=== PATIENT | female | born 1985 | race Hispanic/Latino ===

== ENCOUNTER 2020-09-26 17:12 | Outpatient (CLI) | payer OTHER ==
[2020-09-26 17:51] VITALS: BP 107/57
== END 2020-09-26 18:25 | disposition home or self-care (01) ==
LOC: TRG 17:12 → APU 17:19 → TRG 18:25
PROVIDERS: ATTEND Obstetrics & Gynecology
DX: O26.893 Other specified pregnancy related conditions, third trimester (principal); R10.2 Pelvic and perineal pain; Z3A.35 35 weeks gestation of pregnancy
CPT/HCPCS: 59025

== ENCOUNTER 2020-10-09 00:14 | Observation (INO) | payer OTHER ==
[2020-10-09] MEDS ORDERED: LACTATED RINGERS 1,000 ML IV ONE (00:55)
[2020-10-09] MEDS ORDERED: LACTATED RINGERS 1,000 ML IV SCH (02:15)
[2020-10-09 02:38] LABS: Hemoglobin 12.1 gm/dl (10.1-14.3); Mean Corpuscular HGB Conc 35 % (30-34); Mean Corpuscular Volume 91 fl (79-97); Platelet Count 263 K/mm3 (140-440); Red Blood Count 3.85 M/mm3 (3.65-5.03); Red Cell Distribution Width 12.8 % (13.2-15.2)
--- NOTE | 2020-10-09 02:39 | Ultrasound Report ---
US OB limited INDICATION: PLACENTA LOCATION AND INTEGRITY. TECHNIQUE: Transabdominal. COMPARISON: None available. FINDINGS/IMPRESSION: There is a single intrauterine . Heart Rate: 157 beats per minute. Position: cephalic. Placenta: Posterior low-lying placenta. Grade 2. No evidence of abruption. Signer Name: Bryon Glover MD Signed: 10/09/2020 2:35 AM Workstation Name: [id number]
[2020-10-09] MEDS ORDERED: TERBUTALINE 1 MG/1 ML INJ SUB-Q ONE (02:42)
--- NOTE | 2020-10-09 05:30 | History and Physical Report ---
History of Present Illness Date of examination: 10/09/20 Date of admission: 10/09/20 02:15 Chief complaint: painless vagina bleeding History of present illness: EDC Calculations LMP: 10/28/2020 Past History : 3 Term Births: 2 Premature Births: 0 Living Children: 2 Para: 2 Mult. Births: 0 Prev : 1 Prev. attempt? 0 Aborta: 0 Elect. Ab: 0 Spont. Ab: 0 Ectopics: 0 # 1 Delivery date: 07/24/2006 Weeks Gestation: 40 labor: no Delivery type: Anesthesia type: none Delivery location: [facility] Sex: Male # 2 Delivery date: 01/13/2016 Delivery type: Delivery location: [facility] Infant Sex: Female weight: 6#10 Comments: breech Risk Factors: Smoked Tobacco Use: Never smoker Smokeless Tobacco Use: Never Passive smoke exposure: no Drug use: no HIV high-risk behavior: no Caffeine use: <1 drinks per day Alcohol use: no Exercise: yes Times per week: 3 Type of Exercise: walking Seatbelt use: preg-teen counselor % Dietary Counseling: pn yes Past Medical History: Reviewed history from 09/21/2015 and no changes required: Negative Past Medical History Past Surgical History: Reviewed history from 02/24/2016 and no changes required: x 1 Social History: Reviewed history from 09/21/2015 and no changes required: Patient is single Smoking History: Patient has never smoked. No ETOH or drugs use Past Medical History Surgery (Non-door closer): x 1 Abnormal PAP: negative JOHAN Exposure: negative Infertility: negative Uterine Anomaly: negative Uterine Surgery (not C/S): negative Other Gynecologic Problems: negative Social Hx: Patient is single Smoking History: Patient has never smoked. No ETOH or drugs use Infection History Hx of STD: none HIV Risk Eval: no Hepatitis B Risk Eval: low risk Personal hx. of genital herpes: no Rash, Viral, or Febrile illness since last LMP? no Varicella/Chicken Pox Status: Previous Disease TB Risk: no Genetic History ADVANCED MATERNAL AGE Congenital Heart Defect: Mom: no Dad: no Eufemia Disease: Mom: no Dad: no Thalassemia Mom: no Dad: no Neural Tube Defect Mom: no Dad: no Down's Syndrome Mom: no Dad: no Kulwinder-Sachs Mom: no Dad: no Sickle Cell Disease/Trait Mom: no Dad: no Hemophilia Mom: no Dad: no Muscular Dystrophy Mom: no Dad: no Cystic Fibrosis Mom: no Dad: no Sudarshan Chorea Mom: no Dad: no Mental Retardation Mom: no Dad: no Fragile X Mom: no Dad: no Other Genetic/Chromosomal Disorder Mom: no Dad: no Child w/other defect Mom: no Dad: no Enviromental Exposures Enviromental Exposures Reviewed Xray Exposure: no Medication, drug, or alcohol use since LMP: no Chemical/Other Exposure: no Exposure to Cat Liter: no Hx of Parvovirus (Fifth Disease): no Occupational Exposure to Children: none Comments: unemployed Active Medications (reviewed today): PNV () Current Allergies (reviewed today): CODEINE SULFATE (CODEINE SULFATE TABS) (Critical) Past History Past Medical History: other (see HPI) Past Surgical History: other (see HPI) INDIVIDUAL PENSION CONSULTANT History: other (see HPI) Family/Genetic History: other (see HPI) - Obstetrical History Expected Date of Delivery: 10/28/20 Actual Gestation: 37 Week(s) 2 Day(s) : 3 Para: 2 Hx # Term Pregnancies: 2 Spontaneous Abortions: 0 Induced : 0 Number of Living Children: 2 Medications and Allergies Allergies Allergy/AdvReac Type Severity Reaction Status Date / Time codeine Allergy Intermediate Hives Verified 02/24/16 15:45 Home Medications Medication Instructions Recorded Confirmed Last Taken Type Famotidine [Acid-Pep] 20 mg PO DAILY 09/26/20 09/26/20 09/26/20 History Multivitamin Tablet 1 tab PO DAILY 09/26/20 09/26/20 09/26/20 History Active Meds: Active Medications Lactated Ringer's (Lactated Ringers) 1,000 mls @ 125 mls/hr IV DIRECT CATHY Multivitamins/Iron/Calcium ( [id number] Fumarate-Folic Acid Vit Tab) 1 each PO QDAY CATHY Review of Systems All systems: negative - Vital Signs Vital signs: Vital Signs Temp 98.2 F 10/09/20 00:34 Temp Pulse Resp BP Pulse Ox 97.9 F 89 14 117/64 98 10/09/20 03:04 10/09/20 05:22 10/09/20 03:04 10/09/20 03:04 10/09/20 05:22 - Physical Exam Cardiovascular: Regular rate Lungs: Positive: Normal air movement Abdomen: Positive: normal appearance, soft Genitourinary (Female): Positive: normal external genitalia, normal perenium Vulva: both: normal (scant bleeding - bright red) Uterus: Positive: normal size, normal contour Anus/Rectum: Positive: normal perianal skin Extremities: Positive: normal Deep Tendon Reflex Grade: Normal +2 - Obstetrical FHR: category 1 Uterine Contraction Monitor Mode: External Cervical Dilatation: 0.5 (per physician non invasive cardiologist) Uterine Contraction Pattern: Irregular Uterine Tone Measurement Phase: Contraction Uterine Contraction Intensity: Mild Results Result Diagrams: 10/09/20 01:25 Abnormal lab results 10/09/20 Range/Units 01:25 WBC 11.6 H (4.5-11.0) K/mm3 MCHC 35 H (30-34) % RDW 12.8 L (13.2-15.2) % All other labs normal. Assessment and Plan 34 y/o @ 37+2 noticed vaginal bleeding while at home watching TV. she denies feeling ctx and reports active FM. u/s with MFM 08/03 noted posterior placenta. u/s done while in triage noted possible low lying/previa. - Patient Problems (1) Previous section Current Visit: Yes Status: Acute (2) Vaginal bleeding Current Visit: Yes Status: Acute Plan to address problem: observe overnight for additional bleeding consider repeating u/s if bleeding persist monitor for labor (3) 37 weeks gestation of Current Visit: Yes Status: Acute
[2020-10-09] MEDS ORDERED: LIDOCAINE PF 100 MG/5 ML (CARDIAC SYRINGE) IV ONE (06:05)
--- NOTE | 2020-10-09 07:49 | Progress Note ---
Assessment and Plan A: 34 y.o. @ 37+ wks. Admitted for c/o vaginal bleeding. No vaginal bleeding noted this AM. P: Will obtain cervical length via u/s this AM. If cervical length normal will discharge home. Pt aware to keep pre op appointment if discharged home. Subjective - Subjective Date of service: 10/09/20 (No bleeding) Principal diagnosis: IUP @ 37+, c/o vaginal bleeding. Patient reports: other (No bleeding) Objective - Vital Signs Vital Signs: Vital Signs - 12hr 10/09/20 10/09/20 10/09/20 00:34 00:35 00:40 Temperature 98.2 F Pulse Rate 72 79 Respiratory Rate Blood Pressure 114/69 Blood Pressure [Left] O2 Sat by Pulse 98 98 Oximetry 10/09/20 10/09/20 10/09/20 00:45 00:50 00:55 Temperature Pulse Rate 85 90 80 Respiratory Rate Blood Pressure Blood Pressure [Left] O2 Sat by Pulse 98 98 97 Oximetry 10/09/20 10/09/20 10/09/20 01:02 01:07 01:12 Temperature Pulse Rate 85 89 82 Respiratory Rate Blood Pressure Blood Pressure [Left] O2 Sat by Pulse 98 98 98 Oximetry 10/09/20 10/09/20 10/09/20 01:17 01:22 01:27 Temperature Pulse Rate 74 77 85 Respiratory Rate Blood Pressure Blood Pressure [Left] O2 Sat by Pulse 97 98 99 Oximetry 10/09/20 10/09/20 10/09/20 01:32 01:37 01:42 Temperature Pulse Rate 78 71 66 Respiratory Rate Blood Pressure Blood Pressure [Left] O2 Sat by Pulse 98 98 99 Oximetry 10/09/20 10/09/20 10/09/20 01:47 01:52 01:57 Temperature Pulse Rate 78 70 85 Respiratory Rate Blood Pressure Blood Pressure [Left] O2 Sat by Pulse 98 98 98 Oximetry 10/09/20 10/09/20 10/09/20 02:02 02:07 02:12 Temperature Pulse Rate 79 79 68 Respiratory Rate Blood Pressure Blood Pressure [Left] O2 Sat by Pulse 98 97 98 Oximetry 10/09/20 10/09/20 10/09/20 02:17 02:22 02:27 Temperature Pulse Rate 74 69 77 Respiratory Rate Blood Pressure Blood Pressure [Left] O2 Sat by Pulse 98 98 99 Oximetry 10/09/20 10/09/20 10/09/20 03:02 03:03 03:04 Temperature 97.9 F Pulse Rate 119 H 100 H 114 H Respiratory 14 Rate Blood Pressure 117/64 Blood Pressure 117/64 [Left] O2 Sat by Pulse 99 98 Oximetry 10/09/20 10/09/20 10/09/20 03:07 03:12 03:17 Temperature Pulse Rate 110 H 100 H 106 H Respiratory Rate Blood Pressure Blood Pressure [Left] O2 Sat by Pulse 98 98 98 Oximetry 10/09/20 10/09/20 10/09/20 03:22 03:27 03:32 Temperature Pulse Rate 94 H 90 86 Respiratory Rate Blood Pressure Blood Pressure [Left] O2 Sat by Pulse 99 97 99 Oximetry 10/09/20 10/09/20 10/09/20 03:37 03:42 03:47 Temperature Pulse Rate 96 H 76 81 Respiratory Rate Blood Pressure Blood Pressure [Left] O2 Sat by Pulse 98 98 98 Oximetry 10/09/20 10/09/20 10/09/20 03:52 03:57 04:02 Temperature Pulse Rate 77 86 84 Respiratory Rate Blood Pressure Blood Pressure [Left] O2 Sat by Pulse 97 97 97 Oximetry 10/09/20 10/09/20 10/09/20 04:07 04:12 04:17 Temperature Pulse Rate 89 90 93 H Respiratory Rate Blood Pressure Blood Pressure [Left] O2 Sat by Pulse 97 97 97 Oximetry 10/09/20 10/09/20 10/09/20 04:22 04:27 04:32 Temperature Pulse Rate 94 H 92 H 88 Respiratory Rate Blood Pressure Blood Pressure [Left] O2 Sat by Pulse 97 96 97 Oximetry 10/09/20 10/09/20 10/09/20 04:37 04:42 04:47 Temperature Pulse Rate 95 H 81 88 Respiratory Rate Blood Pressure Blood Pressure [Left] O2 Sat by Pulse 98 98 97 Oximetry 10/09/20 10/09/20 10/09/20 04:52 04:57 05:02 Temperature Pulse Rate 86 86 84 Respiratory Rate Blood Pressure Blood Pressure [Left] O2 Sat by Pulse 98 97 98 Oximetry 10/09/20 10/09/20 10/09/20 05:07 05:12 05:17 Temperature Pulse Rate 98 H 85 80 Respiratory Rate Blood Pressure Blood Pressure [Left] O2 Sat by Pulse 97 97 98 Oximetry 10/09/20 10/09/20 10/09/20 05:22 05:27 05:32 Temperature Pulse Rate 89 75 95 H Respiratory Rate Blood Pressure Blood Pressure [Left] O2 Sat by Pulse 98 98 99 Oximetry 10/09/20 10/09/20 10/09/20 05:37 05:42 05:47 Temperature Pulse Rate 83 78 75 Respiratory Rate Blood Pressure Blood Pressure [Left] O2 Sat by Pulse 98 98 97 Oximetry 10/09/20 10/09/20 10/09/20 05:52 05:57 06:02 Temperature Pulse Rate 75 75 74 Respiratory Rate Blood Pressure Blood Pressure [Left] O2 Sat by Pulse 98 97 97 Oximetry 10/09/20 10/09/20 10/09/20 06:07 06:12 06:17 Temperature Pulse Rate 73 111 H 74 Respiratory Rate Blood Pressure Blood Pressure [Left] O2 Sat by Pulse 97 99 97 Oximetry 10/09/20 10/09/20 10/09/20 06:22 06:27 06:32 Temperature Pulse Rate 72 69 75 Respiratory Rate Blood Pressure Blood Pressure [Left] O2 Sat by Pulse 98 97 97 Oximetry 10/09/20 10/09/20 10/09/20 06:37 06:42 06:47 Temperature Pulse Rate 86 79 75 Respiratory Rate Blood Pressure Blood Pressure [Left] O2 Sat by Pulse 97 98 98 Oximetry 10/09/20 10/09/20 10/09/20 06:52 06:57 07:02 Temperature Pulse Rate 85 86 76 Respiratory Rate Blood Pressure Blood Pressure [Left] O2 Sat by Pulse 98 97 98 Oximetry 10/09/20 10/09/20 10/09/20 07:07 07:12 07:17 Temperature Pulse Rate 79 78 111 H Respiratory Rate Blood Pressure Blood Pressure [Left] O2 Sat by Pulse 99 97 98 Oximetry 10/09/20 10/09/20 10/09/20 07:22 07:27 07:32 Temperature Pulse Rate 70 71 105 H Respiratory Rate Blood Pressure Blood Pressure [Left] O2 Sat by Pulse 98 97 98 Oximetry 10/09/20 10/09/20 10/09/20 07:37 07:42 07:47 Temperature Pulse Rate 74 68 69 Respiratory Rate Blood Pressure Blood Pressure [Left] O2 Sat by Pulse 97 98 99 Oximetry - Exam Breasts: deferred Cardiovascular: Regular rate Lungs: Normal air movement Abdomen: Present: normal appearance, soft Uterus: Present: normal FHR: category 1 Uterine Contraction Monitor Mode: External Uterine Contraction Pattern: Absent Uterine Tone Measurement Phase: Resting Extremities: normal - Labs Labs: Abnormal Labs 10/09/20 01:25 WBC 11.6 H MCHC 35 H RDW 12.8 L Laboratory Results - last 24 hr 10/09/20 10/09/20 10/09/20 01:25 01:25 01:25 WBC 11.6 H RBC 3.85 Hgb 12.1 Hct 35.0 MCV 91 MCH 31 MCHC 35 H RDW 12.8 L Plt Count 263 Syphilis IgG Antibody Nonreactive Blood Type O POSITIVE Antibody Screen Negative
--- NOTE | 2020-10-09 09:06 | Ultrasound Report ---
ULTRASOUND OBSTETRIC LIMITED INDICATION / CLINICAL INFORMATION: Evaluate cervical length. TECHNIQUE: Transabdominal ultrasound imaging. COMPARISON: Earlier today at 0121 hours FINDINGS: HEART RATE (beats per minute): 112 AMNIOTIC FLUID INDEX (cm) = not measured PRESENTATION: Cephalic. ADDITIONAL FINDINGS: The cervix measures 2.7 cm in length. IMPRESSION: The cervix measures 2.7 cm in length. Signer Name: Nathan Donohue Jr, MD Signed: 10/09/2020 9:02 AM Workstation Name: [id number]
[2020-10-09] MEDS ORDERED: PRENATAL VIT27-FE FUMARATE-FOLIC ACID VIT TAB PO SCH (10:00)
--- NOTE | 2020-10-09 13:35 | Discharge Summary ---
Providers - Providers Date of Admission: 10/09/20 02:15 Date of discharge: 10/09/20 (No bleeding noted. ) Attending physician: CRISPIN BARNES Primary care physician: CRISPIN BARNES Hospitalization Reason for admission: observation Pertinent studies: Went to speak with patient and she was doing well. She has had no episodes of bleeding since last night. Examination: her cervix appears closed and no bleeding was seen. She denies abdominal tenderness. Her monitor strip is category 1 with an occasional contraction. We discussed when to call the photonics engineering technician provider with concerns. Pt to keep her scheduled pre operative appointment on 10/15. Pt verbalized understanding of all instructions given to her. Hospital course: S Pt doing well. No vaginal bleeding reported. Denies LOF, ctxs, and vaginal bleeding. Positive movement. O: VSS. Category 1 strip with an occasional contraction. No bleeding noted on pad and cervix appears closed. A: 34 y.o. @ 37+ wks, admitted for observation d/t vaginal bleeding. No more vaginal bleeding noted. In good condition for discharge home. P: Discharge home with instructions. Pt to keep scheduled pre op appointment on 10/15. Should pt have anymore vaginal bleeding, she will call photonics engineering technician provider and come to triage for evaluation. Condition at discharge: Good Disposition: DC-01 TO HOME OR SELFCARE Plan - Provider Discharge Summary Activity: routine, no sex for 6 weeks, no heavy lifting 4 weeks, no strenuous exercise Diet: routine Instructions: routine Additional instructions: [] Smoking cessation referral if applicable(refer to patient education folder for contact #) [] Refer to [facility]'s [facility] Booklet Call your doctor immediately for: * Fever > 100.5 * Heavy vaginal bleeding ( >1 pad per hour) * Severe persistent headache * Shortness of breath * Reddened, hot, painful area to leg or breast * Drainage or odor from incision. * Keep incision clean and dry at all times and follow doctor's instructions regarding bathing/showering Please keep your scheduled pre operative appointment on 10/15. Should you have any questions or concerns before that date, please do not hesitate to call the office at [phone]. If you have any leakage of fluid, vaginal bleeding like a period, decreased movement, or regular contractions every 5 minutes, please call the photonics engineering technician provider and go to [facility] Delivery to be evaluated. - Follow up plan Follow up: CRISPIN BARNES MD [Primary Care Provider] - 7 Days Forms: [facility] Discharge Summary
[2020-10-09 14:27] VITALS: BP 99/65
== END 2020-10-09 14:28 | disposition home or self-care (01) ==
LOC: TRG 00:14 → APU 00:22 → LD 02:15 → TRG 02:15
PROVIDERS: ADMIT Obstetrics & Gynecology; ATTEND Obstetrics & Gynecology
DX: O46.93 Antepartum hemorrhage, unspecified, third trimester (principal); Z20.822 Contact with and (suspected) exposure to COVID-19; Z3A.37 37 weeks gestation of pregnancy; Z98.891 History of uterine scar from previous surgery
CPT/HCPCS: 36415; 59020; 76815; 85027; 86592; 86850; 86900; 86901; 96360; 96372; G0378; J3105; J7120; U0003

== ENCOUNTER 2020-10-18 05:27 | Inpatient (IN) | payer OTHER ==
[2020-10-18 07:12] LABS: Bacteria,Urine 1+ /HPF (Negative); Bilirubin,Urine NEG (Negative); Blood,Urine NEG (Negative); Color,Urine Yellow (Yellow); Mucus,Urine FEW /HPF; Protein,Urine <15 mg/dL mg/dL (Negative); RBC,Urine < 1.0 /HPF (0.0-6.0); Urobilinogen,Urine < 2.0 mg/dL (<2.0)
[2020-10-18] MEDS ORDERED: BICITRA ORAL LIQD 30ML PO ONE (07:48)
[2020-10-18] MEDS ORDERED: METOCLOPRAMIDE 10 MG/2 ML INJ IV ONE (07:48)
[2020-10-18] MEDS ORDERED: FAMOTIDINE 20 MG/2 ML INJ IV ONE (07:48)
[2020-10-18] MEDS ORDERED: OXYTOCIN DRIP 30 UNITS/500 ML BAG IV SCH ×2 (08:00→13:15)
[2020-10-18] MEDS ORDERED: ceFAZolin/Water 2 GM/20 ML 2 GM/20 ML SYRINGE IV NR (08:00)
[2020-10-18] MEDS: LACTATED RINGERS 1,000 ML IV SCH ×2 (08:10→08:46)
[2020-10-18 08:27] LABS: Hematocrit 33.7 % (30.3-42.9); Hemoglobin 12.1 gm/dl (10.1-14.3); Mean Corpuscular HGB Conc 36 % (30-34); Mean Corpuscular Volume 89 fl (79-97); Platelet Count 262 K/mm3 (140-440); Red Blood Count 3.78 M/mm3 (3.65-5.03); Red Cell Distribution Width 12.9 % (13.2-15.2)
--- NOTE | 2020-10-18 08:31 | Anesthesia Day of Surgery ---
Anesthesia Day of Surgery - Day of Surgery Patient Examined: Yes Patient H&P Reviewed: Yes Patient is NPO: Yes Beta Blockers: No Cardiac Clearance: No Pulmonary Clearance: No Romie's Test: N/A
[2020-10-18] MEDS ORDERED: NALOXONE 0.4 MG/1 ML INJ IV PRN ×2 (08:33→13:15)
[2020-10-18] MEDS ORDERED: ONDANSETRON 4 MG/2 ML INJ IV PRN (08:33)
[2020-10-18] MEDS ORDERED: HYDROmorphone 1 MG/1 ML INJ IV PRN (08:33)
--- NOTE | 2020-10-18 08:33 | Anesthesia Consultation ---
Anesthesia Consult and Med Hx Date of service: 10/18/20 - Airway Anesthetic Teeth Evaluation: Good ROM Head & Neck: Adequate Mental/Hyoid Distance: Adequate Mallampati Class: Class II Intubation Access Assessment: Probably Good - Pulmonary Exam CTA: Yes - Cardiac Exam Cardiac Exam: RRR - Pre-Operative Health Status ASA Pre-Surgery Classification: ASA2 Proposed Anesthetic Plan: Spinal - Pulmonary Hx Smoking: No Hx Asthma: No Hx Respiratory Symptoms: No SOB: No COPD: No Home Oxygen Therapy: No Hx Pneumonia: No Hx Sleep Apnea: No - Cardiovascular System Hx Hypertension: No Hx Coronary Artery Disease: No Hx Heart Attack/AMI: No Hx Angina: No Hx Percutaneous Transluminal Coronary Angioplasty (PTCA): No Hx Cardia Arrhythmia: No Hx Pacemaker: No Hx Internal Defibrillator: No Hx Valvular Heart Disease: No Hx Heart Murmur: Yes (as a child, "don't have it anymore") Hx Peripheral Vascular Disease: No - Central Nervous System Hx Neuromuscular Disorder: No Hx Seizures: No Hx Psychiatric Problems: No - Gastrointestinal Hx Ulcer: No Hx Gastroesophageal Reflux Disease: No - Endocrine Hx Renal Disease: No Hx End Stage Renal Disease: No Hx Cirrhosis: No Hx Liver Disease: No Hx Insulin Dependent Diabetes: No Hx Non-Insulin Dependent Diabetes: No Hx Thyroid Disease: No Hx Hypothyroidism: No Hx Hyperthyroidism: No - Hematic Hx Anemia: No Hx Sickle Cell Disease: No - Other Systems Hx Alcohol Use: No Hx Substance Use: No Hx Cancer: No Hx Obesity: No
[2020-10-18] MEDS ORDERED: ceFAZolin/STERILE WATER 2 GM/20 ML SYRINGE IV ONE (09:42)
[2020-10-18] MEDS ORDERED: ONDANSETRON 4 MG/2 ML INJ ONE ×2 (09:56)
--- NOTE | 2020-10-18 09:59 | History and Physical Report ---
History of Present Illness Date of examination: 10/18/20 Date of admission: 10/18/20 07:44 Chief complaint: IUP@ 38 4/7 previous C/S who desires repeat c/s and presented for pelvic pain. She was noted to have persistent contractions. Although she is not dilated, will proceed with c/s d/t concern for persistent contraction and uterine rupture. Diagnosis and concerns discussed with patient she desires to proceed with c/s. She declines sterilization at this time. History of present illness: EDC Confirmation: 10/28/2020 Gestational Age: 20 6/7 weeks Past History : 3 Term Births: 2 Premature Births: 0 Living Children: 2 Para: 2 Mult. Births: 0 Prev : 1 Prev. attempt? 0 Aborta: 0 Elect. Ab: 0 Spont. Ab: 0 Ectopics: 0 # 1 Delivery date: 07/24/2006 Weeks Gestation: 40 labor: no Delivery type: Anesthesia type: none Delivery location: [facility] Sex: Male # 2 Delivery date: 01/13/2016 Delivery type: Delivery location: [facility] Infant Sex: Female weight: 6#10 Comments: breech Risk Factors: Smoked Tobacco Use: Never smoker Smokeless Tobacco Use: Never Passive smoke exposure: no Drug use: no HIV high-risk behavior: no Caffeine use: <1 drinks per day Alcohol use: no Exercise: yes Times per week: 3 Type of Exercise: walking Seatbelt use: preg-debt counselor % Dietary Counseling: pn yes Past Medical History: Reviewed history from 09/21/2015 and no changes required: Negative Past Medical History Past Surgical History: Reviewed history from 02/24/2016 and no changes required: x 1 Social History: Reviewed history from 09/21/2015 and no changes required: Patient is single Smoking History: Patient has never smoked. No ETOH or drugs use Past Medical History Surgery (Non-artist woodblock): x 1 Abnormal PAP: negative JOHAN Exposure: negative Infertility: negative Uterine Anomaly: negative Uterine Surgery (not C/S): negative Other Gynecologic Problems: negative Social Hx: Patient is single Smoking History: Patient has never smoked. No ETOH or drugs use Infection History Hx of STD: none HIV Risk Eval: no Hepatitis B Risk Eval: low risk Personal hx. of genital herpes: no Rash, Viral, or Febrile illness since last LMP? no Varicella/Chicken Pox Status: Previous Disease TB Risk: no Genetic History ADVANCED MATERNAL AGE Congenital Heart Defect: Mom: no Dad: no Eufemia Disease: Mom: no Dad: no Thalassemia Mom: no Dad: no Neural Tube Defect Mom: no Dad: no Down's Syndrome Mom: no Dad: no Kulwinder-Sachs Mom: no Dad: no Sickle Cell Disease/Trait Mom: no Dad: no Hemophilia Mom: no Dad: no Muscular Dystrophy Mom: no Dad: no Cystic Fibrosis Mom: no Dad: no Sudarshan Chorea Mom: no Dad: no Mental Retardation Mom: no Dad: no Fragile X Mom: no Dad: no Other Genetic/Chromosomal Disorder Mom: no Dad: no Child w/other defect Mom: no Dad: no Enviromental Exposures Enviromental Exposures Reviewed Xray Exposure: no Medication, drug, or alcohol use since LMP: no Chemical/Other Exposure: no Exposure to Cat Liter: no Hx of Parvovirus (Fifth Disease): no Occupational Exposure to Children: none Comments: unemployed Active Medications (reviewed today): PNV () Current Allergies (reviewed today): CODEINE SULFATE (CODEINE SULFATE TABS) (Critical) Past History - Obstetrical History Expected Date of Delivery: 10/28/20 Actual Gestation: 38 Week(s) 4 Day(s) : 3 Medications and Allergies Allergies Allergy/AdvReac Type Severity Reaction Status Date / Time codeine Allergy Intermediate Hives Verified 02/24/16 15:45 Home Medications Medication Instructions Recorded Confirmed Last Taken Type Famotidine [Acid-Pep] 20 mg PO DAILY 09/26/20 09/26/20 09/26/20 History Multivitamin Tablet 1 tab PO DAILY 09/26/20 09/26/20 09/26/20 History Active Meds: Active Medications Hydromorphone HCl (Hydromorphone 1 Mg/1 Ml Inj) 0.5 mg IV Q5M PRN PRN Reason: BREAK Stop: 10/18/20 22:00 Lactated Ringer's (Lactated Ringers) 1,000 mls @ 2,250 mls/hr IV PREOP CATHY Stop: 10/19/20 08:27 Last Admin: 10/18/20 08:46 Dose: 2,250 mls/hr Documented by: Oxytocin/Sodium Chloride (Pitocin/Ns 30 Unit/500ml) 30 units in 500 mls @ 0 mls/hr IV TITR CATHY; Protocol Cefazolin Sodium (Ancef/Sterile Water 2 Gm/20 Ml) 2 gm in 20 mls @ 80 mls/hr IV PREOP NR; Protocol Stop: 10/19/20 07:59 Naloxone HCl (Naloxone 0.4 Mg/1 Ml Inj) 0.2 mg IV Q2MIN PRN PRN Reason: Res Rate </= 8 or 02 SAT < 92% Ondansetron HCl (Ondansetron 4 Mg/2 Ml Inj) 4 mg IV Q8H PRN PRN Reason: Nausea And Vomiting - Vital Signs Vital signs: Vital Signs Pulse Pulse Ox 67 98 10/18/20 06:03 10/18/20 06:03 Temp Pulse Resp BP Pulse Ox 98.5 F 84 18 113/70 98 10/18/20 09:24 10/18/20 09:34 10/18/20 09:24 10/18/20 09:05 10/18/20 09:34 - Physical Exam Lungs: Positive: Normal air movement Abdomen: Positive: normal appearance, soft - Obstetrical FHR: category 1 Results Result Diagrams: 10/18/20 08:08 Abnormal lab results 10/18/20 Range/Units 08:08 MCHC 36 H (30-34) % RDW 12.9 L (13.2-15.2) % All other labs normal. Assessment and Plan - Patient Problems (1) 38 weeks gestation of Current Visit: Yes Status: Acute Plan to address problem: Early labor Consent reviewed and signed. The risks and alternatives for this surgery were reviewed with the patient. She was informed of possible bleeding, infection, injury to bowel, bladder, ureters or other adjacent organs. The patient was instructed/informed the following: The normal length of hospital stay for this procedure. Nothing to eat or drink after midnight the evening prior to surgery. Wound care instructions given. Infection precautions reviewed, patient to call for any signs or symptoms of infection. The usual discomforts associated with this procedure were detailed. Proper use of pain medicines was reviewed. Patient was given ample opportunity to have all her questions answered before signing informed consent. She declines sterilization at this time and was informed she will require another c/s with subsequent deliveries and her risks for complications such as, including but not limited to, uterine rupture w/ or w/o labor, hemorrhage, infection and bowel or bladder injury that may require permanent ostomies, significantly increases.
[2020-10-18] MEDS ORDERED: SODIUM CHLORIDE 0.9% IRR 1,500 ML BOTTLE IR ONE (10:09)
[2020-10-18] MEDS ORDERED: WATER FOR IRRIG STERILE 1,500 ML BOTTLE IR ONE (10:09)
[2020-10-18] MEDS ORDERED: SODIUM CHLORIDE 0.9% 100 ML ONE (10:19)
[2020-10-18] MEDS ORDERED: PHENYLEPHRINE/NS 1,000 MCG/10 ML SYRINGE (OR USE) IV ONE (10:30)
[2020-10-18] MEDS ORDERED: dexAMETHasone 20 MG/5 ML VIAL ONE (10:51)
[2020-10-18] MEDS ORDERED: BUPIVACAINE/PF (0.5%) 5 MG/1 ML 30 ML VIAL INFILTRATI ONE (10:51)
--- NOTE | 2020-10-18 11:26 | Operative Report ---
Operative Report Operative Report: Date of operation: 10/18/2020 Pre-operative diagnosis: 1. 38 4/7 weeks gestational age 2. Early labor 3. Previous delivery 4. BMI 26.6 5. Desires repeat delivery Post-operative diagnosis: 1. 38 4/7 weeks gestational age 2. Early labor 3. Previous delivery 4. BMI 26.6 5. Desires repeat delivery Procedure name(s): Repeat low transverse uterine incision Surgeon: Juanita Coto MD Conciliation Court Judge: Bettye Godoy CST Anesthesia: Combined spinal epidural EBL: 700 mL Urine output: 200 mL of clear urine out at the end of the procedure Fluids: 600 mL Findings: Liveborn male weight 6 Lbs. 2.4 oz. Apgars of 9 and 9 at one and 5 minutes Indications: [] Procedure: Patient was taking to the operating room. Spinal/epidural anesthesia was placed. Patient was then prepped and draped in the usual sterile fashion Timeout was performed. Once an appropriate level of anesthesia was noted, a Pfannenstiel incision was made and extended the fascia which was incised and extended lateral direction. The overlying fascia was sharply dissected away from the underlying rectus muscles in the superior inferior direction. The midline was entered bluntly. Bladder blade was placed. Vesicouterine fold was incised with blunt dissection bladder flap was created. A transverse incision was made in the lower uterine segment and extended superolateral direction with finger fractionation. Clear fluid was noted. was delivered from the LOT position, with spontaneous cry and excellent tone. Mouth and nose bulb suctioned. Cord was doubly clamped and cut infant was given to the resuscitation team present. Placenta was delivered. The uterus was exteriorized and cleaned of any further placental tissue and products of conception. Uterine incision was approximated using 0 Vicryl in a running interlocking stitch followed by further suture of 0 Vicryl in imbricating fashion. When hemostasis was noted the uterus was allowed back in the pelvic cavity. Pelvis was irrigated with warm normal saline. Once hemostasis was noted the rectus muscles were approximated using 0 Vicryl interrupted simple stitches 3. Once hemostasis was noted the fascia was approximated using 0 Vicryl simple running stitch. The incision was irrigated with warm saline, once hemostasis as noted, the subcuticular adipose tissue was reapproximated using 3-0 Vicryl in a simple running fashion. Skin was approximated using 4-0 Vicryl on a Endy needle in a subcuticular manner. Counts were correct x3. Patient tolerated the procedure well, she was taken to recovery room in stable condition.
--- NOTE | 2020-10-18 11:40 | Progress Note ---
Spinal Anesthesia Block - Spinal Anesthesia Block Start Time: 09:43 Stop Time: :50 Performed by:: RM GONZALEZ Procedure: Patient IDed, H&P reviewed, all questions and concerns were answered, and consent was signed. Timeout was performed at bedside. Patient in sitting position. Sterile prep and drape was performed. [3] ml of 1% lidocaine skin wheal at L[3]- L [4]. Needle introducer advanced. 25 gauge spinal needle advanced. Clear, free flowing CSF. negative blood, negative paresthesia. Spinal dose given. All needles removed. Patient tolerated procedure.
--- NOTE | 2020-10-18 11:41 | Progress Note ---
Objective - Constitutional Vitals: Vital Signs - 12hr 10/18/20 10/18/20 10/18/20 06:03 06:08 06:13 Temperature Pulse Rate 67 75 80 Respiratory Rate Blood Pressure O2 Sat by Pulse 98 97 98 Oximetry 10/18/20 10/18/20 10/18/20 06:18 07:00 07:01 Temperature 97.8 F Pulse Rate 69 65 65 Respiratory 18 Rate Blood Pressure 113/69 O2 Sat by Pulse 100 98 Oximetry 10/18/20 10/18/20 10/18/20 07:05 07:10 07:15 Temperature Pulse Rate 75 72 91 H Respiratory Rate Blood Pressure O2 Sat by Pulse 98 98 99 Oximetry 10/18/20 10/18/20 10/18/20 07:20 07:25 07:34 Temperature Pulse Rate 61 70 96 H Respiratory Rate Blood Pressure O2 Sat by Pulse 98 98 99 Oximetry 10/18/20 10/18/20 10/18/20 07:39 07:44 07:49 Temperature Pulse Rate 72 84 85 Respiratory Rate Blood Pressure O2 Sat by Pulse 99 98 99 Oximetry 10/18/20 10/18/20 10/18/20 07:54 07:59 08:04 Temperature Pulse Rate 73 81 92 H Respiratory Rate Blood Pressure O2 Sat by Pulse 98 99 99 Oximetry 10/18/20 10/18/20 10/18/20 08:09 08:14 08:19 Temperature Pulse Rate 73 73 63 Respiratory Rate Blood Pressure O2 Sat by Pulse 98 99 100 Oximetry 10/18/20 10/18/20 10/18/20 08:24 08:29 08:34 Temperature Pulse Rate 77 65 75 Respiratory Rate Blood Pressure O2 Sat by Pulse 99 100 99 Oximetry 10/18/20 10/18/20 10/18/20 08:39 08:44 08:49 Temperature Pulse Rate 76 71 72 Respiratory Rate Blood Pressure O2 Sat by Pulse 98 99 99 Oximetry 10/18/20 10/18/20 10/18/20 08:54 08:59 09:04 Temperature Pulse Rate 71 73 71 Respiratory Rate Blood Pressure O2 Sat by Pulse 98 99 99 Oximetry 10/18/20 10/18/20 10/18/20 09:05 09:09 09:14 Temperature 98.5 F Pulse Rate 109 H 78 78 Respiratory 18 Rate Blood Pressure 113/70 O2 Sat by Pulse 99 98 99 Oximetry 10/18/20 10/18/20 10/18/20 09:19 09:24 09:29 Temperature 98.5 F Pulse Rate 75 100 H 101 H Respiratory 18 Rate Blood Pressure O2 Sat by Pulse 98 99 97 Oximetry 10/18/20 09:34 Temperature Pulse Rate 84 Respiratory Rate Blood Pressure O2 Sat by Pulse 98 Oximetry - Labs CBC & Chem 7: 10/18/20 08:08 Labs: Abnormal lab results 10/18/20 Range/Units 08:08 MCHC 36 H (30-34) % RDW 12.9 L (13.2-15.2) % Regional Anesthesia Block - Regional Anesthesia Block Start Time: 11:00 Stop Time: 11:10 Performed By:: RM GONZALEZ Procedure: Patient consented for TAP block for post surgical pain management. Patient identified, monitors placed, and time out performed. TAP identified bilaterally via ultrasound. Skin prepped bilaterally with [chlorhexidine] and [22g stimupl ex] needle advanced to the TAP. [Marcaine 0.22% 35ml] injected under ultrasound guidance on the [left] side. [Marcaine 0.22% 35ml] injected under ultrasound guidance on the [right] side. Negative aspiration every 5mL, No change in heart rate or rhythm. Patient tolerated the procedure well. No apparent complications seen.
[2020-10-18] MEDS ORDERED: SIMETHICONE 80 MG CHEW TAB PO PRN (13:15)
[2020-10-18] MEDS ORDERED: D5W/LACTATED RINGERS 1,000 ML IV SCH ×2 (13:15→14:00)
[2020-10-18] MEDS ORDERED: WITCH HAZEL/ GLYCERIN PAD TP PRN (13:15)
[2020-10-18] MEDS ORDERED: LANOLIN/ZINC/DIMETHICONE (LANSINOH) 7 GM TP PRN (13:15)
--- NOTE | 2020-10-18 13:23 | Event Note ---
Date: 10/18/20 [facility]rickey'casey [facility];; wilmer Mcnamara RN stating patient's HR was low 50's while asleep in PCAU however increased to mid to high 50's when VS's were check on MB
[2020-10-18] MEDS ORDERED: ACETAMINOPHEN 325 MG TAB PO SCH (14:30)
[2020-10-18] MEDS: ceFAZolin/NS 1 GM/50 ML 1 GM/50 ML BAG IV SCH (17:25)
[2020-10-18] MEDS: KETOROLAC 30 MG/1 ML INJ IV SCH ×2 (17:26→23:13)
[2020-10-18] MEDS ORDERED: MAGNESIUM HYDROXIDE (MOM) ORAL LIQD UDC PO PRN (22:00)
[2020-10-19] MEDS: ceFAZolin/NS 1 GM/50 ML 1 GM/50 ML BAG IV SCH (01:35)
[2020-10-19 03:15] LABS: Hematocrit 33.2 % (30.3-42.9); Hemoglobin 11.3 gm/dl (10.1-14.3)
--- NOTE | 2020-10-19 05:39 | Progress Note ---
Assessment and Plan - Patient Problems (1) delivery delivered Onset Date: ~10/19/20 Current Visit: No Status: Acute Plan to address problem: pt A&O X 3 Sitting up in bed No c/o voiced.VSS FF below umb Lochia small Dr milan D&I to be removed this AM. H&H stable No s/sx of anemia. Doing well s/p section. P: continue pathway Advance diet and activity as tolerated Subjective - Subjective Date of service: 10/19/20 ( pt in good spirits) Principal diagnosis: Day #1 s/p repeat section Patient reports: appetite normal, voiding normally, pain well controlled, ambulating normally : doing well Objective - Vital Signs Latest vital signs: Vital Signs Temp Pulse Resp BP BP Pulse Ox 10/19/20 00:22 98.0 F 78 14 118/76 10/18/20 23:13 14 10/18/20 21:02 97.9 F 61 20 102/63 97 10/18/20 18:47 74 97 10/18/20 17:06 97.1 F L 19 10/18/20 16:59 60 98 10/18/20 16:58 51 L 90/46 98 10/18/20 16:31 73 98 10/18/20 16:19 64 98 10/18/20 15:04 62 98 10/18/20 14:09 64 98 10/18/20 13:58 60 98 10/18/20 13:17 97.3 F L 52 L 18 105/66 97 10/18/20 13:05 49 L 105/66 97 10/18/20 12:35 54 L 15 101/66 99 10/18/20 12:15 53 L 15 106/62 99 10/18/20 11:55 56 L 14 103/58 98 10/18/20 11:40 50 L 16 102/60 99 10/18/20 11:25 98 F 56 L 14 110/59 99 10/18/20 11:10 79 18 104/63 98 10/18/20 11:05 91 H 16 113/71 98 10/18/20 10:58 97.6 F 83 13 108/64 99 10/18/20 09:34 84 98 10/18/20 09:29 101 H 97 10/18/20 09:24 98.5 F 100 H 18 99 10/18/20 09:19 75 98 10/18/20 09:14 78 99 10/18/20 09:09 78 98 10/18/20 09:05 98.5 F 109 H 18 113/70 99 10/18/20 09:04 71 99 10/18/20 08:59 73 99 10/18/20 08:54 71 98 10/18/20 08:49 72 99 10/18/20 08:44 71 99 10/18/20 08:39 76 98 10/18/20 08:34 75 99 10/18/20 08:29 65 100 10/18/20 08:24 77 99 10/18/20 08:19 63 100 10/18/20 08:14 73 99 10/18/20 08:09 73 98 10/18/20 08:04 92 H 99 10/18/20 07:59 81 99 10/18/20 07:54 73 98 10/18/20 07:49 85 99 10/18/20 07:44 84 98 10/18/20 07:39 72 99 10/18/20 07:34 96 H 99 10/18/20 07:25 70 98 10/18/20 07:20 61 98 10/18/20 07:15 91 H 99 10/18/20 07:10 72 98 10/18/20 07:05 75 98 10/18/20 07:01 65 113/69 10/18/20 07:00 97.8 F 65 18 98 10/18/20 06:18 69 100 10/18/20 06:13 80 98 10/18/20 06:08 75 97 10/18/20 06:03 67 98 Intake and Output 10/18/20 10/18/20 10/19/20 14:59 22:59 06:59 Intake Total 1700 690 Output Total 750 2000 500 Balance 950 -1310 -500 Intake: IV 1700 50 ANCEF/NS 1 GM/50 ML 1 gm 50 In 50 ml @ 100 mls/hr IV Q8H CATHY Rx#:[id number] Lactated Ringers 1,000 ml 1000 @ 2250 mls/hr IV PREOP CATHY Rx#:[id number] Oral 540 Intake, Free Water 100 Output: Urine 750 2000 500 Indwelling Catheter 800 Uretheral (Churchill) 275 Void 1200 500 Other: Total, Intake Amount 240 Total, Output Amount 1200 300 # Voids Indwelling Catheter 1 Void 1 1 Weight 150 lb Estimated Blood Loss 700 Patient Weight 10/19/20 06:59 Weight 150 lb - Exam Breasts: Present: normal Cardiovascular: Present: Regular rate Lungs: Present: Normal air movement Abdomen: Present: normal appearance, soft Uterus: Present: normal Extremities: Present: normal Deep Tendon Reflex Grade: Normal +2 Incision: Present: normal, dry, intact, dressed (to be removed this AM) - Labs Labs: Abnormal lab results 10/18/20 Range/Units 08:08 MCHC 36 H (30-34) % RDW 12.9 L (13.2-15.2) %
[2020-10-19] MEDS ORDERED: ACETAMINOPHEN 500 MG TAB PO PRN (10:56)
[2020-10-19] MEDS ORDERED: KETOROLAC 30 MG/1 ML INJ IV PRN (10:56)
[2020-10-19] MEDS ORDERED: TETANUS,DIPH,PERTUSS(ACELL) VACCINE 0.5 ML SYRINGE IM ONE (11:00)
[2020-10-19] MEDS: oxyCODONE /ACETAMINOPHEN 5-325MG TAB PO PRN ×2 (11:50→17:49)
[2020-10-19] MEDS: IBUPROFEN 800 MG TAB PO PRN (22:15)
[2020-10-20] MEDS: oxyCODONE /ACETAMINOPHEN 5-325MG TAB PO PRN ×2 (00:12→11:21)
[2020-10-20] MEDS: IBUPROFEN 800 MG TAB PO PRN (05:49)
--- NOTE | 2020-10-20 08:40 | Discharge Summary ---
Providers - Providers Date of Admission: 10/18/20 07:44 Date of discharge: 10/20/20 (Pt desires to go home.) Attending physician: GEORGIE HAMMER 10/18/20 13:15 Consult to Inventory Associate And Driver [CONS] Routine Reason For Exam: Primary care physician: GEORGIE HAMMER Hospitalization Reason for admission: other (Not in active labor, but mino too much to send home. ) Delivery: Procedure: repeat low transverse Episiotomy: none Laceration: none Incision: normal, dry, intact (No s/sx of infection. No drainage noted. ) complications: none Discharge diagnosis: IUP at term delivered [place] baby: male Hospital course: S: Doing well. Ambulating, voiding, and passing flatus without difficulty. BC: None. O: VSS. H/H 11.3/33.2. Fundus firm, minimal bleeding noted. Incision open to air, intact, in s/sx of infection, and no drainage noted. A: 34 y.o. s/p rpt @ term, . In good condition and can be discharged home. P: Discharge home with instructions. To schedule an incision and son's circumcision in the office in 1 week. Condition at discharge: Good Disposition: DC-01 TO HOME OR SELFCARE Plan - Discharge Medications Prescriptions: Lidocain2.5%/Prilocai2.5% [Emla] 5 gm TP ONCE #1 tube Ibuprofen [Motrin 800 MG tab] 800 mg PO TID PRN #30 tablet PRN Reason: Pain oxyCODONE /ACETAMINOPHEN [Percocet 5/325 mg] 1 - 2 tab PO Q4HR PRN #14 tablet PRN Reason: Pain - Provider Discharge Summary Activity: routine, no sex for 6 weeks, no heavy lifting 4 weeks, no strenuous exercise Diet: routine Instructions: routine Additional instructions: [] Smoking cessation referral if applicable(refer to patient education folder for contact #) [] Refer to [facility] Booklet Call your doctor immediately for: * Fever > 100.5 * Heavy vaginal bleeding ( >1 pad per hour) * Severe persistent headache * Shortness of breath * Reddened, hot, painful area to leg or breast * Drainage or odor from incision. * Keep incision clean and dry at all times and follow doctor's instructions regarding bathing/showering Congratulations on your baby boy!! Please schedule his circumcision and your incision check in the office in 1 week. You have been prescribed EMLA cream for his circumcision. Please do not use this cream at home but bring it with you to your son's circumcision. If you have any questions or concerns after discharge, please do not hesitate to call the office at [phone]. - Follow up plan Follow up: GEORGIE HAMMER MD [Primary Care Provider] - 7 Days Forms: Work/School Release Form
--- NOTE | 2020-10-20 10:48 | Post Anesthesia Evaluation ---
- Post Anesthesia Evaluation Patient Participated: Yes Airway Patent: Yes Stable Respiratory Function: Yes Nausea/Vomiting: No Temp > 96.8F: Yes Pain Manageable: Yes Adequeate Hydration: Yes Anesthesia Complications: No Block Receding Appropriately: Yes Patient on Ventilator: No
[2020-10-20 16:17] VITALS: BP 130/74
== END 2020-10-20 15:45 | disposition home or self-care (01) | DRG 766 ==
LOC: TRG 05:27 → APU 06:01 → TRG 07:42 → APU 07:44 → OB 13:06
PROVIDERS: ADMIT Obstetrics & Gynecology; ATTEND Obstetrics & Gynecology
PROC: 10D00Z1 Extraction of Products of Conception, Low, Open Approach (ICD-10-PCS; principal; 2020-10-18)
PROC: 3E0R3BZ Introduction of Anesthetic Agent into Spinal Canal, Percutaneous Approach (ICD-10-PCS; 2020-10-18)
DX: O34.211 Maternal care for low transverse scar from previous cesarean delivery (principal); Z3A.38 38 weeks gestation of pregnancy; Z37.0 Single live birth; Z20.822 Contact with and (suspected) exposure to COVID-19
CPT/HCPCS: 36415; 81001; 85014; 85018; 85027; 86592; 86850; 86900; 86901; G0378; J0690; J1100; J1885; J2370; J2405; J2765; J3490; J7120; J7121; U0003